=== PATIENT | female | born 1970 | race Caucasian/White ===

== ENCOUNTER 2016-10-06 08:52 | Inpatient (IN) | payer BC ==
[~2016-10-06] VITALS: Ht 167.6 cm; Wt 125.0 kg
[~2016-10-06 08:52] MED LIST: B-125000 MC1 SL; BENADRYL25 MG PO; BIOTIN 5000MCG PO; ERGOCALCIF50000 UNIT PO; FLINTSTONES WI1 EACH PO; PAIN RELIEF325 M1 PO; SYNTHROID112 MCG PO; TUMS500 MG PO
[2016-10-06 10:56] VITALS: BP 130/76
[2016-10-06 11:05] LABS: POINT-OF-CARE METER ID UU14174212
[2016-10-06 16:05] VITALS: BP 133/73
[2016-10-06 17:50] LABS: POINT-OF-CARE METER ID UU14162508
[2016-10-06 20:08] VITALS: BP 144/83
[2016-10-06 23:32] VITALS: BP 126/69
[2016-10-06 23:48] LABS: POINT-OF-CARE METER ID UU14162508
[2016-10-07 03:45] VITALS: BP 123/62
[2016-10-07 07:02] LABS: HEMATOCRIT 40.8 % (36.0-46.0); MCH 25.9 PG (29.0-34.0); MCHC 31.6 G/DL (30.0-36.0); MCV 81.8 FL (83-99); MEAN PLAT.VOLUME 9.3 uM^3 (9.5-12.4); PLATELET COUNT 358 K/uL (156-360); RBC DIS.WIDTH-CV 13.4 % (11.8-14.6); RBC DIS.WIDTH-SD 39.8 % (39-53); RED BLOOD COUNT 4.99 M/uL (3.80-5.20)
[2016-10-07 07:23] LABS: ANION GAP 8 MEQ/L (2-14); CHLORIDE 101 MEQ/L (99-109); GFR ESTIMATE (CALCULATED) > 59 mL/min/; GLUCOSE 101 mg/dL (70-99); MAGNESIUM 1.7 mg/dl (1.3-2.7); POTASSIUM 4.3 MEQ/L (3.7-5.4); SAMPLE HEMOLYSIS CHECK 0; SAMPLE ICTERIC CHECK 0; SAMPLE LIPEMIA CHECK 0; SODIUM 136 MEQ/L (136-147); UREA NITROGEN (BUN) 8 mg/dL (9-23)
[2016-10-07 08:00] VITALS: BP 142/64
[2016-10-07] MEDS ORDERED: HYDROCODON-ACE1 EAC7 PO (08:05)
== END 2016-10-07 11:11 | disposition home or self-care (01) | DRG 621 ==
LOC: 2SOUTH 08:52 → 2EAST 16:04
PROVIDERS: Surgery
PROC: 0DB64Z3 Excision of Stomach, Percutaneous Endoscopic Approach, Vertical (ICD-10-PCS; principal; 2016-10-06)
DX: E66.01 Morbid (severe) obesity due to excess calories (principal); E88.81 Metabolic syndrome and other insulin resistance; E03.9 Hypothyroidism, unspecified; E28.2 Polycystic ovarian syndrome; M19.90 Unspecified osteoarthritis, unspecified site; D64.9 Anemia, unspecified; K90.0 Celiac disease; Z90.710 Acquired absence of both cervix and uterus; Z68.42 Body mass index [BMI] 45.0-49.9, adult
CPT/HCPCS: 80048; 82948; 83735; 84100; 85027; 94799; C9113; J0330; J1100; J1170; J1580; J1644; J1650; J1815; J2250; J2270; J2405; J2710; J2765; J3010; J3480; J7050; J7120; S0020

== ENCOUNTER 2017-12-29 20:30 | Inpatient (IN) | payer BC ==
[~2017-12-29] VITALS: Ht 167.6 cm; Wt 91.6 kg
[~2017-12-29 20:30] MED LIST changes: +HYDROCODON-ACE1 EAC7 PO; +NEURONTIN300 MG PO; -SYNTHROID112 MCG PO; +SYNTHROID88 MCG PO; +VIACTIV SOFT C1 EACH PO
[2017-12-30 07:24] VITALS: BP 130/71
[2017-12-30] MEDS ORDERED: TRAMADOL HCL50 MG PO (07:30)
[2017-12-30 13:59] VITALS: BP 119/59
[2017-12-30 16:02] VITALS: BP 124/63
[2017-12-30 16:19] LABS: HEMATOCRIT 40.5 % (36.0-46.0); HEMOGLOBIN 12.8 G/DL (11.9-15.5); MCH 26.8 PG (29.0-34.0); MCHC 31.6 G/DL (30.0-36.0); MCV 84.9 FL (83-99); PLATELET COUNT 314 K/uL (156-360); RBC DIS.WIDTH-CV 13.2 % (11.8-14.6); RBC DIS.WIDTH-SD 41.4 % (39-53); RED BLOOD COUNT 4.77 M/uL (3.80-5.20); WHITE BLOOD COUNT 15.5 K/uL (4.1-10.2)
[2017-12-30 16:34] LABS: CHLORIDE 103 MEQ/L (99-109); CREATININE 0.7 MG/DL (0.6-1.3); GFR ESTIMATE (CALCULATED) > 59 mL/min/; GLUCOSE 235 mg/dL (70-99); POTASSIUM 4.5 MEQ/L (3.7-5.4); SODIUM 134 MEQ/L (136-147); UREA NITROGEN (BUN) 13 mg/dL (9-23)
[2017-12-30 19:47] VITALS: BP 118/61
[2017-12-31] VITALS (7 sets, daily range): BP systolic 102–126; BP diastolic 56–70
[2017-12-31 06:07] LABS: HEMATOCRIT 38.2 % (36.0-46.0); HEMOGLOBIN 12.1 G/DL (11.9-15.5); MCH 26.7 PG (29.0-34.0); MCHC 31.7 G/DL (30.0-36.0); MCV 84.1 FL (83-99); PLATELET COUNT 300 K/uL (156-360); RBC DIS.WIDTH-CV 13.2 % (11.8-14.6); RBC DIS.WIDTH-SD 40.5 % (39-53); RED BLOOD COUNT 4.54 M/uL (3.80-5.20); WHITE BLOOD COUNT 13.3 K/uL (4.1-10.2)
[2017-12-31 06:29] LABS: CHLORIDE 105 MEQ/L (99-109); CREATININE 0.7 MG/DL (0.6-1.3); GFR ESTIMATE (CALCULATED) > 59 mL/min/; POTASSIUM 3.7 MEQ/L (3.7-5.4); SODIUM 138 MEQ/L (136-147); UREA NITROGEN (BUN) 7 mg/dL (9-23)
[2017-12-31 06:31] LABS: GLUCOSE 88 mg/dL (70-99)
[2018-01-01 04:17] VITALS: BP 118/65
[2018-01-01 05:55] LABS: HEMATOCRIT 33.5 % (36.0-46.0); HEMOGLOBIN 10.8 G/DL (11.9-15.5); MCH 27.1 PG (29.0-34.0); MCHC 32.2 G/DL (30.0-36.0); MCV 84.2 FL (83-99); PLATELET COUNT 283 K/uL (156-360); RBC DIS.WIDTH-CV 13.4 % (11.8-14.6); RBC DIS.WIDTH-SD 41.5 % (39-53); RED BLOOD COUNT 3.98 M/uL (3.80-5.20); WHITE BLOOD COUNT 11.7 K/uL (4.1-10.2)
[2018-01-01 06:22] LABS: CHLORIDE 105 MEQ/L (99-109); CREATININE 0.6 MG/DL (0.6-1.3); GFR ESTIMATE (CALCULATED) > 59 mL/min/; GLUCOSE 110 mg/dL (70-99); POTASSIUM 3.7 MEQ/L (3.7-5.4); SODIUM 139 MEQ/L (136-147); UREA NITROGEN (BUN) 6 mg/dL (9-23)
[2018-01-01 08:02] VITALS: BP 128/56
[2018-01-01] MEDS ORDERED: TRAMADOL HCL50 MG PO (09:47)
== END 2018-01-01 10:20 | disposition home or self-care (01) | DRG 743 ==
LOC: ENRESERV 20:30 → 2SOUTH 12-30 06:47 → ENRESERV 12-30 10:38 → 2SOUTH 12-30 11:02 → 2EASTP 12-30 13:39 → 2SOUTH 12-30 15:25 → 2EASTP 01-01 10:20
PROVIDERS: Obstetrics & Gynecology Gynecologic Oncology
DX: N83.8 Other noninflammatory disorders of ovary, fallopian tube and broad ligament (principal); N80.1 Endometriosis of ovary; N73.6 Female pelvic peritoneal adhesions (postinfective); N13.5 Crossing vessel and stricture of ureter without hydronephrosis; E03.9 Hypothyroidism, unspecified; E55.9 Vitamin D deficiency, unspecified; D50.9 Iron deficiency anemia, unspecified; Z98.84 Bariatric surgery status; Z88.0 Allergy status to penicillin; Z88.2 Allergy status to sulfonamides
CPT/HCPCS: 36415; 80048; 85027; 86850; 86900; 86901; 86920; 88305; 88307; J0131; J1100; J1170; J1580; J1650; J1885; J2250; J2405; J2710; J2765; J3010; J7050; J7643; Q0175; S0030